=== PATIENT | female | born 1935 | race Caucasian/White ===

== ENCOUNTER 2017-09-24 22:28 | Inpatient (IN) | payer OTHER, MEDICARE ==
[~2017-09-24] VITALS: Ht 160 cm; Wt 92.7 kg
[~2017-09-24 22:28] MED LIST: AVAPRO300 MG PO; CALCITRATE + D1 EACH PO; CATAPRES0.2 MG PO; CO Q-1010 MG PO; CRANBERRY400 MG PO; CRESTOR10 MG PO; DITROPAN XL10 MG PO; LO-DOSE ASPIRIN81 M1 PO; LYRICA75 MG PO; NITROSTAT0.4 MG SL; NORVASC2.5 MG PO; OSTEO BI-FLEX1 EAC2 PO; SHINGRIX ADJUV0.5 ML IM; TOPROL XL50 MG PO; TYLENOL EXTRA500 MG PO; ULTRAM50 MG PO; VITAMIN B-6100 MG PO; VITAMIN B125000 MCG PO; VITAMIN E400 UNIT PO; ZANTAC150 MG PO
[2017-09-25 07:25] VITALS: BP 138/96
[2017-09-25 13:20] VITALS: BP 150/69
[2017-09-25 15:36] VITALS: BP 130/92
[2017-09-25 19:57] VITALS: BP 107/60
[2017-09-26 00:30] VITALS: BP 144/77
[2017-09-26 04:00] VITALS: BP 149/69
[2017-09-26 06:17] LABS: HEMATOCRIT 35.8 % (36.0-46.0); HEMOGLOBIN 11.8 G/DL (11.9-15.5); MCV 97.3 FL (83-99)
[2017-09-26 06:45] LABS: CHLORIDE 105 MEQ/L (99-109); CREATININE 0.8 MG/DL (0.6-1.3); GFR ESTIMATE (CALCULATED) > 59 mL/min/; GLUCOSE 111 mg/dL (70-99); POTASSIUM 4.5 MEQ/L (3.7-5.4); SODIUM 143 MEQ/L (136-147); UREA NITROGEN (BUN) 24 mg/dL (9-23)
[2017-09-26 08:30] VITALS: BP 150/59
[2017-09-26 11:50] VITALS: BP 120/79
[2017-09-26 16:13] VITALS: BP 127/69
[2017-09-26 20:17] VITALS: BP 110/56
[2017-09-27] VITALS (8 sets, daily range): BP systolic 109–151; BP diastolic 55–76
[2017-09-27 05:27] LABS: HEMATOCRIT 35.9 % (36.0-46.0); HEMOGLOBIN 11.8 G/DL (11.9-15.5); MCV 98.4 FL (83-99)
[2017-09-28 03:56] VITALS: BP 128/60
[2017-09-28 07:44] VITALS: BP 144/66
[2017-09-28] MEDS ORDERED: ELIQUIS2.5 MG PO (08:48)
[2017-09-28] MEDS ORDERED: HYDROCODON-ACE1 EAC7 PO (08:48)
[2017-09-28 12:15] VITALS: BP 95/51
== END 2017-09-28 13:30 | DRG 470 ==
LOC: ENRESERV 22:28 → 3WEST 09-25 06:42 → 2SOUTH 09-25 06:42 → 3WEST 09-25 13:07 → ENRESERV 09-27 09:50 → 3EAST 09-27 14:05
PROVIDERS: Orthopaedic Surgery
PROC: 0SRC0J9 Replacement of Right Knee Joint with Synthetic Substitute, Cemented, Open Approach (ICD-10-PCS; principal; 2017-09-25)
DX: M17.11 Unilateral primary osteoarthritis, right knee (principal); I10 Essential (primary) hypertension; E78.5 Hyperlipidemia, unspecified; E66.9 Obesity, unspecified; I25.10 Atherosclerotic heart disease of native coronary artery without angina pectoris; K21.9 Gastro-esophageal reflux disease without esophagitis; I48.0 Paroxysmal atrial fibrillation; I34.0 Nonrheumatic mitral (valve) insufficiency; I36.1 Nonrheumatic tricuspid (valve) insufficiency; I44.7 Left bundle-branch block, unspecified; Z88.0 Allergy status to penicillin; Z68.36 Body mass index [BMI] 36.0-36.9, adult; Z95.5 Presence of coronary angioplasty implant and graft
CPT/HCPCS: 71045; 80048; 85014; 85018; C1713; J0690; J1885; J2250; J2795; J7050